=== PATIENT | male | born 1955 | race Two or more races ===

== ENCOUNTER → 2024-12-29 | Outpatient (CLI) | payer MEDICARE, MEDICAID, SELFPAY ==
[2024-12-29 08:37] LABS: Quantiferon-TB* See Sep Rpt
[2024-12-29 09:39] LABS: Basophils % (Auto) 1 % (0-2.5); Eosinophils # (Auto) 0.1 Thou/mm3 (0.0-0.5); Eosinophils % (Auto) 2 % (0-10); Hematocrit 44.8 % (41.0-53.0); Hemoglobin 15.3 g/dL (13.5-16.0); Immature Granulocytes % (Auto) 0 % (0-0); Immature Granulocytes Auto 0.02 Thou/mm3 (0.00-0.00); Lymphocytes # (Auto) 2.4 Thou/mm3 (1.0-4.8); Lymphocytes % (Auto) 44 % (10-50); Mean Corpuscular HGB Conc 34.2 g/dl (31.0-37.0); Mean Corpuscular Hemoglobin 31.7 pg (25.0-35.0); Mean Corpuscular Volume 93 fL (80-100); Monocytes # (Auto) 0.4 Thou/mm3 (0.0-0.8); Monocytes % (Auto) 7 % (0-12); Neutrophils # (Auto) 2.5 Thou/mm3 (1.8-7.7); Neutrophils % (Auto) 46 % (37-80); Nucleated Red Blood Cell % 0 /100 WBC (0); Platelet Count 286 Thou/mm3 (140-440); RDW Standard Deviation 44.2 fL (35.1-43.9); Red Blood Count 4.82 Miln/mm3 (4.50-5.90); White Blood Count 5.5 Thou/mm3 (3.8-10.6)
[2024-12-29 09:54] LABS: Alanine Aminotransferase 30 U/L (10-49); Albumin, Serum 4.6 gm/dL (3.4-4.8); Albumin/Globulin Ratio 1.5 (1.2-2.2); Alkaline Phosphatase 101 U/L (46-116); Anion Gap 6 (7-16); Aspartate Amino Transferase 27 U/L (0-34); BUN/Creatinine Ratio 19 Ratio (12-20); Bilirubin,Total 0.3 mg/dL (0.3-1.2); Blood Urea Nitrogen 17 mg/dL (9-23); Calcium 9.6 mg/dL (8.3-10.6); Calcium (Corrected) 9.6 mg/dL (8.5-10.1); Carbon Dioxide 26.3 mMol/L (20.0-31.0); Chloride 108 mMol/L (98-107); Creatinine (Component) 0.9 mg/dL (0.6-1.3); Globulin 3.1 gm/dL (2.3-3.5); Glucose 108 mg/dL (74-106); Osmolality,Calculated 281 (275-295); Potassium 4.3 mMol/L (3.4-5.1); Sodium 140 mMol/L (136-145); Total Protein 7.7 gm/dL (5.7-8.2); eGFR > 60 See Note
[2024-12-29 10:20] LABS: Syphilis Nonreactive (Nonreactive)
[2024-12-31 17:52] LABS: HIV-1 RNA, QN PCR 23 copies/mL
[2024-12-31 22:04] LABS: CD19 Percentage 9 % (6-29); CD19, Absolute 197 cells/uL (110-660); CD3 Percentage 59 % (57-85); CD3, Absolute 1390 cells/uL (840-3060); CD3-CD16+CD56+ % 32 % (4-25); CD3-CD16+CD56+ (Abs) 742 cells/uL (70-760); CD4 Percentage 30 % (30-61); CD4, Absolute 715 cells/uL (490-1740); CD4/CD8 Ratio 0.97 (0.86-5.00); CD8 Percentage 31 % (12-42); CD8, Absolute 740 cells/uL (180-1170)
[2025-01-01 06:32] LABS: HIV-1 RNA, QN PCR Log 1.36; Lymphocytes, Absolute 2345 cells/uL (850-3900)
== END | disposition home or self-care (01) ==
LOC: COPL 08:05
PROVIDERS: PCP Family Medicine; Referring Provider Internal Medicine Infectious Disease; Visit Provider Internal Medicine Infectious Disease
DX: B20 Human immunodeficiency virus [HIV] disease (principal)
CPT/HCPCS: 36415; 80053; 85025; 86355; 86357; 86359; 86360; 86480; 86780; 87536

== ENCOUNTER → 2025-01-01 | Outpatient (CLI) | payer MEDICARE, SELFPAY ==
[2025-01-01 08:42] LABS: Basophils % (Auto) 1 % (0-2.5); Eosinophils # (Auto) 0.1 Thou/mm3 (0.0-0.5); Eosinophils % (Auto) 1 % (0-10); Hematocrit 44.7 % (41.0-53.0); Hemoglobin 15.5 g/dL (13.5-16.0); Immature Granulocytes % (Auto) 0 % (0-0); Immature Granulocytes Auto 0.01 Thou/mm3 (0.00-0.00); Lymphocytes % (Auto) 48 % (10-50); Mean Corpuscular HGB Conc 34.7 g/dl (31.0-37.0); Mean Corpuscular Hemoglobin 31.8 pg (25.0-35.0); Mean Corpuscular Volume 92 fL (80-100); Monocytes # (Auto) 0.5 Thou/mm3 (0.0-0.8); Monocytes % (Auto) 7 % (0-12); Neutrophils # (Auto) 2.7 Thou/mm3 (1.8-7.7); Neutrophils % (Auto) 43 % (37-80); Nucleated Red Blood Cell % 0 /100 WBC (0); Platelet Count 287 Thou/mm3 (140-440); RDW Standard Deviation 43.4 fL (35.1-43.9); Red Blood Count 4.88 Miln/mm3 (4.50-5.90); White Blood Count 6.3 Thou/mm3 (3.8-10.6)
[2025-01-01 08:56] LABS: Glucose Estimated Average 114 mg/dL (80-131); Hemoglobin A1C 5.6 % Hgb (4.8-6.0)
[2025-01-01 08:57] LABS: Alanine Aminotransferase 35 U/L (10-49); Albumin, Serum 4.9 gm/dL (3.4-4.8); Albumin/Globulin Ratio 1.5 (1.2-2.2); Alkaline Phosphatase 102 U/L (46-116); Anion Gap 9 (7-16); Aspartate Amino Transferase 32 U/L (0-34); BUN/Creatinine Ratio 16 Ratio (12-20); Bilirubin,Total 0.4 mg/dL (0.3-1.2); Blood Urea Nitrogen 16 mg/dL (9-23); Calcium 10.2 mg/dL (8.3-10.6); Calcium (Corrected) 10.2 mg/dL (8.5-10.1); Cardiac Risk Estimate 4.9 RATIO (4.0-6.7); Chloride 107 mMol/L (98-107); Cholesterol 205 mg/dL (132-200); Globulin 3.2 gm/dL (2.3-3.5); Glucose 109 mg/dL (74-106); HDL Cholesterol 42 mg/dL (40-60); LDL Cholesterol,Calculated 123 mg/dL (0-130); Osmolality,Calculated 287 (275-295); Potassium 4.3 mMol/L (3.4-5.1); Sodium 143 mMol/L (136-145); Total Protein 8.1 gm/dL (5.7-8.2); Triglycerides 198 mg/dL (30-150); eGFR > 60 See Note
== END | disposition home or self-care (01) ==
LOC: COPL 07:27
PROVIDERS: PCP Student in an Organized Health Care Education/Training Program; Referring Provider Student in an Organized Health Care Education/Training Program; Visit Provider Student in an Organized Health Care Education/Training Program
DX: J30.9 Allergic rhinitis, unspecified (principal); R03.0 Elevated blood-pressure reading, without diagnosis of hypertension
CPT/HCPCS: 36415; 80053; 80061; 83036; 85025

== ENCOUNTER → 2025-04-05 | Outpatient (CLI) | payer MEDICARE, SELFPAY ==
[2025-04-08 17:52] LABS: PSA, Free 0.57 ng/mL; PSA, Total 6.6 ng/mL (< OR = 4.0)
[2025-04-09 06:58] LABS: PSA, % Free 9 % (calc) (>25)
== END | disposition home or self-care (01) ==
LOC: COPL 16:31
PROVIDERS: PCP Student in an Organized Health Care Education/Training Program; Referring Provider Student in an Organized Health Care Education/Training Program; Visit Provider Student in an Organized Health Care Education/Training Program
DX: Z12.5 Encounter for screening for malignant neoplasm of prostate (principal)
CPT/HCPCS: 36415; 84153; 84154

== ENCOUNTER → 2025-06-17 | Outpatient (CLI) | payer MEDICARE, MEDICAID, SELFPAY ==
[2025-06-17 07:19] LABS: Quantiferon-TB* See Sep Rpt
[2025-06-17 08:17] LABS: Basophils # (Auto) 0.0 Thou/mm3 (0.0-0.2); Basophils % (Auto) 1 % (0-2.5); Eosinophils # (Auto) 0.1 Thou/mm3 (0.0-0.5); Eosinophils % (Auto) 1 % (0-10); Hematocrit 42.6 % (41.0-53.0); Hemoglobin 14.4 g/dL (13.5-16.0); Immature Granulocytes Auto 0.04 Thou/mm3 (0.00-0.00); Lymphocytes # (Auto) 2.3 Thou/mm3 (1.0-4.8); Lymphocytes % (Auto) 36 % (10-50); Mean Corpuscular HGB Conc 33.8 g/dl (31.0-37.0); Mean Corpuscular Hemoglobin 32.1 pg (25.0-35.0); Mean Corpuscular Volume 95 fL (80-100); Monocytes # (Auto) 0.4 Thou/mm3 (0.0-0.8); Monocytes % (Auto) 6 % (0-12); Neutrophils # (Auto) 3.5 Thou/mm3 (1.8-7.7); Neutrophils % (Auto) 56 % (37-80); Nucleated Red Blood Cell # 0.00 Thou/mm3 (0.00-0.00); Nucleated Red Blood Cell % 0 /100 WBC (0); Platelet Count 400 Thou/mm3 (140-440); RDW Standard Deviation 45.2 fL (35.1-43.9); Red Blood Count 4.48 Miln/mm3 (4.50-5.90); White Blood Count 6.2 Thou/mm3 (3.8-10.6)
[2025-06-17 08:25] LABS: Alanine Aminotransferase 31 U/L (10-49); Albumin, Serum 4.3 gm/dL (3.4-4.8); Albumin/Globulin Ratio 1.3 (1.2-2.2); Alkaline Phosphatase 110 U/L (46-116); Anion Gap 9 (7-16); Aspartate Amino Transferase 33 U/L (0-34); BUN/Creatinine Ratio 13 Ratio (12-20); Bilirubin,Total 0.2 mg/dL (0.3-1.2); Blood Urea Nitrogen 16 mg/dL (9-23); Calcium 9.7 mg/dL (8.3-10.6); Calcium (Corrected) 9.7 mg/dL (8.5-10.1); Carbon Dioxide 26.0 mMol/L (20.0-31.0); Chloride 106 mMol/L (98-107); Creatinine (Component) 1.2 mg/dL (0.6-1.3); Globulin 3.3 gm/dL (2.3-3.5); Glucose 109 mg/dL (74-106); Osmolality,Calculated 283 (275-295); Potassium 4.2 mMol/L (3.4-5.1); Sodium 141 mMol/L (136-145); Total Protein 7.6 gm/dL (5.7-8.2); eGFR > 60 See Note
[2025-06-17 08:46] LABS: Syphilis Nonreactive (Nonreactive)
[2025-06-19 19:51] LABS: CD19 Percentage 9 % (6-29); CD19, Absolute 200 cells/uL (110-660); CD3 Percentage 61 % (57-85); CD3, Absolute 1324 cells/uL (840-3060); CD3-CD16+CD56+ % 30 % (4-25); CD3-CD16+CD56+ (Abs) 674 cells/uL (70-760); CD4 Percentage 32 % (30-61); CD4, Absolute 700 cells/uL (490-1740); CD4/CD8 Ratio 1.08 (0.86-5.00); CD8 Percentage 30 % (12-42); CD8, Absolute 647 cells/uL (180-1170)
[2025-06-21 07:04] LABS: Lymphocytes, Absolute 2185 cells/uL (850-3900)
[2025-07-05 08:55] LABS: HIV Genotype* DETECTED; HIV-1 RNA, QN PCR <20 DETECTED copies/mL; HIV-1 RNA, QN PCR Log <1.30 DETECTED
== END | disposition home or self-care (01) ==
LOC: COPL 06:58
PROVIDERS: PCP Family Medicine
DX: Z21 Asymptomatic human immunodeficiency virus [HIV] infection status (principal)
CPT/HCPCS: 36415; 80053; 85025; 86355; 86357; 86359; 86360; 86480; 86780; 87536; 87901

== ENCOUNTER 2025-06-20 11:15 | Emergency (ER) | payer MEDICARE, MEDICAID, SELFPAY ==
[2025-06-20 11:16] VITALS: BMI 27.1
[2025-06-20 11:43] VITALS: BP 126/71; PULSE 124; RESP 20; TEMP 38.8; O2SAT 95
--- NOTE | 2025-06-20 12:32 | PD.EDURI ---
Upper Respiratory Inf. RME/HPI General Chief Complaint: Flu Like Symptoms Stated Complaint: FEVER/BODY ACHE/BONE PAIN FOR 3 DAYS Time Seen by Provider: 06/20/25 12:28 Source: patient Arrival date/time: 06/20/25 11:15 Mode of arrival: ambulatory Limitations: no limitations RME / HPI RME / HPI Narrative: Patient is a 70-year-old male with medical history notable for HIV, compliant with his medications that in the emerged part concerns for body aches and generally feeling unwell. Also concerned that he is urinating more than normal. Patient recently returned from [place] approximately 2 weeks ago. Patient is HIV positive, is compliant with his medications. Related Data Home Medications ?Medication ?Instructions ?Recorded ?Confirmed efavirenz 600 mg-emtricitabine 200 1 tab PO HS 10/16/21 12/11/21 mg-tenofovir disoprox 300 mg tablet Previous Rx's ?Medication ?Instructions ?Recorded levofloxacin 500 mg tablet 500 mg PO QDAY #14 tabs 06/26/25 ondansetron 4 mg disintegrating 4 mg PO Q6H PRN nausea and 06/26/25 tablet vomiting #20 tabs Allergies Allergy/AdvReac Type Severity Reaction Status Date / Time No Known Allergies Allergy Verified 06/20/25 11:20 ED Exam General Limitations: Present no limitations Head Head exam: Present atraumatic and normocephalic Eye Eye exam: Present normal appearance, PERRL and EOMI ENT ENT exam: Present normal exam, normal oropharynx and mucous membranes moist Neck Neck exam: Present normal inspection, full ROM and trachea midline; Absent tenderness Chest Chest inspection: Present normal inspection and symmetric chest wall rise Respiratory Respiratory exam: Present normal lung sounds bilaterally; Absent respiratory distress, wheezes or stridor Cardiovascular Cardiovascular exam: Present normal rhythm and tachycardia Abdominal Exam Abdominal exam: Present soft; Absent distention, tenderness, guarding, rebound or rigidity Extremities Exam Extremities exam: Present normal inspection and full ROM Back Exam Back exam: Present normal inspection Neurological Exam Neurological exam: Present alert, oriented X3, CN II-XII intact and normal gait; Absent motor sensory deficit Psychiatric Psychiatric exam: Present normal affect and normal mood Course Quality Measures none Orders Category Date Time Status Bedside COVID-19 Antigen Test NOW Care 06/20/25 12:29 Completed Bedside Influenza A&B Antigen Test NOW Care 06/20/25 12:29 Completed CBC Stat Lab 06/20/25 12:55 Completed CMP [Comprehensive Metabolic Panel] Stat Lab 06/20/25 12:55 Completed UA, C/S IF [Urinalysis, C/S if Indicated] Stat Lab 06/20/25 12:40 Completed Urine Culture Stat Lab 06/20/25 12:40 Completed Ketorolac Inj [Toradol Inj] Med 06/20/25 12:30 Discontinued 15 mg IM X1 ONE Vital Signs Vital signs: Vital Signs Temperature 101.8 F H 06/20/25 11:43 Pulse Rate 124 H 06/20/25 11:43 Respiratory Rate 20 06/20/25 11:43 Blood Pressure 126/71 06/20/25 11:43 Pulse Oximetry (%) 95 06/20/25 11:43 Oxygen Delivery Method Room Air 06/20/25 11:43 Upper Respiratory Infection MDM Narrative MDM Narrative:: Pateint p/w fever and feeling unwell. Ordered swabs and labs. Patient eloped from the emergency department prior to reassessment. CALLED FROM [employer] AND NO ANSWER. PT NOT FOUND INSI Recorded: 06/20/25 14:31 CALLED FROM [employer] AND NO ANSWER Recorded: 06/20/25 14:21 called from [employer] and no answer Recorded: 06/20/25 14:04 Patient data External records reviewed:: [facility] previous records Clinical information provided by:: patient Social determinants that could affect healthcare access:: none Patient has the following chronic illnesses:: see above How is presenting disease/condition affected by chronic disease/condition?: exacerbated by Evaluation data The following diagnostics were reviewed and interpreted by me:: lab results Lab and/or radiology exams considered but not ordered:: nonen Interpretation Summary: see above Medications / Prescriptions Medications or Prescriptions considered but not ordered:: none Medication administrations:: Medication Administration History Discontinued Medications Ketorolac Tromethamine (Ketorolac Inj 60 Mg/2 Ml Vial) 15 mg IM X1 ONE Stop: 06/20/25 12:31 Last Admin: 06/20/25 13:25 Dose: 15 mg Documented By: see above Consultations Consultation(s) initiated? (list below): No Diagnosis Upper Respiratory Differential Diagnosis: upper respiratory infection, viral infection and other (pneumonia, strep) Most likely diagnosis given after review of the tests above:: fever Admission Indicated Admission indicated?: not indicated Admission Request Was there a request for admission?: No Disposition Plan Disposition Plan: other (specify) (eloped) Discharge Plan Plan Patient Disposition: Elopement Prescriptions/Referrals Prescriptions/Med Rec: No Action [id number] 600-200-300 mg Tablet 1 tab PO HS levofloxacin 500 mg tablet 500 mg PO QDAY Qty: 14 0RF ondansetron 4 mg tablet,disintegrating 4 mg PO Q6H PRN (Reason: nausea and vomiting) Qty: 20 0RF Problem List Clinical Impression: Fever in adult Patient/Caregiver Discharge Instructions Education Materials: ED Viral Syndrome (Adult) Additional Instructions: Por favor hacer madeline con adler medico de cabecera dentro de 1-2 jaquez. Regresar inmediatamente si tiene nuevos sintomas o sintomas de preocupacion. Print Language: Danish Stand Alone Forms: Radha Award Info., Patient Portal Info Letter
[2025-06-20 13:01] LABS: Collection Type, Urine Clean Catch
[2025-06-20 13:12] LABS: Basophils # (Auto) 0.1 Thou/mm3 (0.0-0.2); Basophils % (Auto) 0 % (0-2.5); Eosinophils # (Auto) 0.0 Thou/mm3 (0.0-0.5); Eosinophils % (Auto) 0 % (0-10); Hematocrit 43.2 % (41.0-53.0); Hemoglobin 14.8 g/dL (13.5-16.0); Immature Granulocytes Auto 0.07 Thou/mm3 (0.00-0.00); Lymphocytes # (Auto) 1.7 Thou/mm3 (1.0-4.8); Lymphocytes % (Auto) 8 % (10-50); Mean Corpuscular HGB Conc 34.3 g/dl (31.0-37.0); Mean Corpuscular Hemoglobin 32.3 pg (25.0-35.0); Mean Corpuscular Volume 94 fL (80-100); Monocytes # (Auto) 1.1 Thou/mm3 (0.0-0.8); Monocytes % (Auto) 5 % (0-12); Neutrophils # (Auto) 17.6 Thou/mm3 (1.8-7.7); Neutrophils % (Auto) 86 % (37-80); Nucleated Red Blood Cell # 0.00 Thou/mm3 (0.00-0.00); Nucleated Red Blood Cell % 0 /100 WBC (0); Platelet Count 349 Thou/mm3 (140-440); RDW Standard Deviation 44.8 fL (35.1-43.9); Red Blood Count 4.58 Miln/mm3 (4.50-5.90); White Blood Count 20.6 Thou/mm3 (3.8-10.6)
[2025-06-20 13:18] LABS: Bilirubin,Urine Negative (Negative); Blood,Urine Negative (Negative); Clarity,Urine Clear (Clear/Hazy); Color,Urine Lt-Yellow (Lt Yel-Yel); Glucose, Urine Negative (Negative); Ketones,Urine Negative (Negative); Leukocyte Esterase,Urine Positive (Negative); Nitrite,Urine Negative (Negative); PH,Urine 6.5 (5.0-7.0); Protein,Urine Trace (Neg - Trace); RBC,Urine 2 /hpf (0-3); Specific Gravity,Urine 1.014 (1.001-1.035); Squamous Epithelial Cell,Urine < 1 /hpf (0-5); Urobilinogen,Urine Negative mg/dL (0.0-1.0); WBC,Urine 17 /hpf (0-5)
[2025-06-20 13:21] LABS: Culture Indicated,Urine Yes
[2025-06-20] MEDS: KETOROLAC INJ 60 MG/2 ML VIAL 15 MG IM (13:25)
[2025-06-20 13:29] LABS: Alanine Aminotransferase 26 U/L (10-49); Albumin, Serum 4.6 gm/dL (3.4-4.8); Albumin/Globulin Ratio 1.4 (1.2-2.2); Alkaline Phosphatase 115 U/L (46-116); Anion Gap 11 (7-16); Aspartate Amino Transferase 29 U/L (0-34); BUN/Creatinine Ratio 12 Ratio (12-20); Bilirubin,Total 0.3 mg/dL (0.3-1.2); Blood Urea Nitrogen 12 mg/dL (9-23); Calcium 10.1 mg/dL (8.3-10.6); Calcium (Corrected) 10.1 mg/dL (8.5-10.1); Carbon Dioxide 24.2 mMol/L (20.0-31.0); Chloride 102 mMol/L (98-107); Creatinine (Component) 1.0 mg/dL (0.6-1.3); Estimated Creatinine Clearance 66.5 mL/min (>60); Globulin 3.4 gm/dL (2.3-3.5); Glucose 114 mg/dL (74-106); Osmolality,Calculated 274 (275-295); Potassium 4.1 mMol/L (3.4-5.1); Sodium 137 mMol/L (136-145); Total Protein 8.0 gm/dL (5.7-8.2); eGFR > 60 See Note
[2025-06-20 13:55] VITALS: TEMP 37.6
--- NOTE | 2025-06-20 14:04 | PC.NURSE ---
called from lobby and no answer
--- NOTE | 2025-06-20 14:21 | PC.NURSE ---
CALLED FROM LOBBY AND NO ANSWER
--- NOTE | 2025-06-20 14:31 | PC.NURSE ---
CALLED FROM [facility] AND NO ANSWER. PT NOT FOUND INSIDE THE E.D. OR OUTSIDE
== END 2025-06-20 14:40 | disposition left against medical advice (07) ==
LOC: SERX 14:55
PROVIDERS: Emergency Provider Emergency Medicine
DX: R50.9 Fever, unspecified (principal); Z21 Asymptomatic human immunodeficiency virus [HIV] infection status
CPT/HCPCS: 36415; 80053; 81001; 85025; 87077; 87086; 87186; 87400; 87811; 96372; 99282; J1885

== ENCOUNTER 2025-06-25 22:06 | Emergency (ER) | payer MEDICARE, MEDICAID, SELFPAY ==
[2025-06-25 22:07] VITALS: BMI 25.0
[2025-06-25 22:54] VITALS: BP 123/75; PULSE 106; RESP 18; TEMP 37.7; O2SAT 98
--- NOTE | 2025-06-25 23:24 | EDRME_ITS ---
Rapid Medical Screening Exam [facility] Arrival date/time: 06/25/25 22:06 70M with history of HIV presents to ED with 1 week of fevers/chills, unable to keep food down, and dysuria. Patient was recently here for this, but was discharged with no meds. Chief Complaint: General Adult/Misc Complain Time Seen by Provider: 06/25/25 23:45 Vital signs: Vital Signs Temperature 99.9 F 06/25/25 22:54 Pulse Rate 106 H 06/25/25 22:54 Respiratory Rate 18 06/25/25 22:54 Blood Pressure 123/75 06/25/25 22:54 Pulse Oximetry (%) 98 06/25/25 22:54 Oxygen Delivery Method Room Air 06/25/25 22:54
--- NOTE | 2025-06-25 23:52 | EDNOTE_ITS ---
ED General RME/HPI General Chief complaint: General Adult/Misc Complain Stated complaint: BONE PAIN WITH FEVER Time Seen by Provider: 06/25/25 23:45 Arrival date/time: 06/25/25 22:06 RME / HPI RME / HPI narrative: 06/25/25 22:06 70M with history of HIV presents to ED with 1 week of fevers/chills, unable to keep food down, and dysuria. Patient was recently here for this, but was discharged with no meds. DR. CYR MAIN ED EVALUATION: 70 y/o male with Hx of HIV presents to ED c/o fever, chills, increased urinary output, and body aches x 1 week. Denies headache. He was seen here approximately 5 days ago for similar symptoms testing negative for COVID/Flu. Patient is compliant with his HIV medication as he states that he only sees his specialist twice a year. No other concerns or complaints expressed at this time. Related Data Home Medications ?Medication ?Instructions ?Recorded ?Confirmed efavirenz 600 mg-emtricitabine 200 1 tab PO HS 1 12/11/21 mg-tenofovir disoprox 300 mg tablet Previous Rx's ?Medication ?Instructions ?Recorded levofloxacin 500 mg tablet 500 mg PO QDAY #14 tabs ondansetron 4 mg disintegrating 4 mg PO Q6H PRN nausea and 06/26/25 tablet vomiting #20 tabs Allergies Allergy/AdvReac Type Severity Reaction Status Date / Time No Known Allergies Allergy Verified 06/20/25 11:20 Review of Systems Review of Systems Systems Reviewed: All systems reviewed, normal except as documented Past Medical History Past Medical History MUSCULOSKELETAL: Positive Musculoskeletal Disorders and Arthritis OTHER HISTORY: Positive Human Immunodeficiency Virus (HIV) Surgical History SURGICAL: Positive Joint Replacement (YEISON HIPS) ED Exam Narrative Physical exam: Generally patient is alert no obvious distress, heart regular rate and rhythm, lungs clear to auscultation equal bilaterally, abdomen soft bowel sounds present nondistended mild suprapubic abdominal tenderness without rebound, musculoskeletal exam showed no costovertebral angle tenderness, skin is warm pale and dry. Neurologic exam Afsaneh Coma Scale of 15, neck shows no nuchal rigidity Course Course Course Narrative: CXR was ordered for determining the etiology of shortness of breath. Quality Measures none Orders Category Date Time Status Bedside COVID-19 Antigen Test NOW Care 06/25/25 22:30 Active Bedside Influenza A&B Antigen Test NOW Care 06/25/25 22:30 Completed XR chest 1V portable Stat Exams 06/25/25 23:56 Taken Blood Culture (Lab) Stat Lab 06/25/25 23:47 Received CBC Stat Lab 06/25/25 23:42 Completed CMP [Comprehensive Metabolic Panel] Stat Lab 06/25/25 23:42 Completed Lactate (Lactic Acid) Stat Lab 06/25/25 23:42 Completed Lipase Stat Lab 06/25/25 23:42 Completed Procalcitonin Stat Lab 06/25/25 23:42 Completed UA [Urinalysis] Stat Lab 06/25/25 00:06 Completed Urine Culture Stat Lab 06/26/25 00:36 Ordered Ketorolac Inj [Toradol Inj] Med 06/25/25 23:52 Discontinued 30 mg IVP X1 ONE Ondansetron Inj [Zofran Inj] Med 06/26/25 00:15 Discontinued 4 mg .ROUTE .STK-MED ONE Ondansetron Inj [Zofran Inj] Med 06/26/25 00:11 Discontinued 4 mg IVP X1 ONE Sodium Chloride 0.9% 1000 ml [Ns] 1,000 ml Med 06/25/25 23:52 Discontinued IV 999 mls/hr cefTRIAXone/D5w 1gm IV premix [Rocephin/D5w 1gm IV Med 06/26/25 00:36 Active premix] 1 gm in 50 ml IV X1 Vital Signs Vital signs: Vital Signs Temperature 99.9 F 06/25/25 22:54 Pulse Rate 106 H 06/25/25 22:54 Respiratory Rate 18 06/25/25 22:54 Blood Pressure 123/75 06/25/25 22:54 Pulse Oximetry (%) 98 06/25/25 22:54 Oxygen Delivery Method Room Air 06/25/25 22:54 Critical Care Time Critical Care Time Critical Care Time: Yes Total Critical Care Time (min.): 35 Attestation: Excluding other billable procedures Discharge Plan Plan Patient Disposition: HOME (Self Care) Prescriptions/Referrals Prescriptions/Med Rec: New levofloxacin 500 mg tablet 500 mg PO QDAY Qty: 14 0RF ondansetron 4 mg tablet,disintegrating 4 mg PO Q6H PRN (Reason: nausea and vomiting) Qty: 20 0RF No Action [id number] 600-200-300 mg Tablet 1 tab PO HS Referrals: Kobe Rojas MD [Primary Care Provider] - In 1 week Problem List Clinical Impression: Acute UTI, Arthralgia, HIV disease, Immunocompromised Patient/Caregiver Discharge Instructions Education Materials: ED Arthralgia, ED Bladder Infection, Male (Adult) Additional Instructions: Take the antibiotic for the next 2 weeks as prescribed. Zofran for nausea. Follow-up with your doctor. Return to ER as needed or if condition worsens. Print Language: Tristanian Stand Alone Forms: Radha Award Info., Patient Portal Info Letter MDM Narrative [facility] hospital course: Scribe Attestation: IShivani, am scribing for and in the presence of Dr. Cyr. Provider Notation: Although this document has been carefully reviewed, there may still be some phonetic and other typographical errors. These errors are purely grammatical due to imperfections in the software program and should not be construed in any way to? compromise the substance of the patient's medical care during this visit. Differential diagnosis, meningitis, cellulitis, pneumonia, UTI, prostatitis, viral syndrome I interpreted all labs. 5 to 6 days ago on June 20 white count was 20,000. Today the white count is 8000. Patient has 17 whites and 1+ bacteria in the urine with symptoms of a urinary tract infection which include frequency. I believe the patient needs to be treated at this time. Patient will receive Rocephin 1 g IV after the urine was obtained and cultured. I will start the patient on Levaquin to be taken as prescribed. I will treat the patient for 14 days under the assumption that this may be a prostatitis as well. Patient has been afebrile and nontachycardic here in the emergency room. Procalcitonin is not elevated. Patient was hydrated with a liter normal saline given Toradol 30 mg IV and Zofran 4 mg IV. He will be discharged on Levaquin and Zofran to be taken as prescribed. Follow-up with his doctor. Return to ER as needed or if condition worsens. Blood cultures were obtained. Clinical Information Provided by patient Medical Records Reviewed [facility] Reviewed prior ED records from 06/20/25. Patient was seen for Fever in adult. Meds/Rx Considered, not Ordered None Labs/Rad/Tests considered, not Ordered None Chronic Illness/Social Conditions which may negatively complicate care or outcome(s)-explain: other (HIV) EKG EKG not done Lab Interpretation Labs: interpreted by me and see narrative above Imaging Imaging interpretation: interpreted by me and see narrative above Medication Administration(s) Medication Administration History Ceftriaxone Sodium/Dextrose (Rocephin/D5w 1gm Iv Premix) 1 gm in 50 mls @ 100 mls/hr IV X1 ONE Stop: 06/26/25 01:05 Discontinued Medications Sodium Chloride (Ns) 1,000 mls @ 999 mls/hr IV .Q1H1M ONE Stop: 06/26/25 00:52 Last Admin: 06/26/25 00:06 Dose: 999 mls/hr Documented By: MICHELE Ketorolac Tromethamine (Ketorolac Inj 30 Mg/Ml Vial) 30 mg IVP X1 ONE Stop: 06/25/25 23:53 Last Admin: 06/26/25 00:07 Dose: 30 mg Documented By: MICHELE Ondansetron HCl (Ondansetron Inj 2 Mg/Ml Inj 2 Ml) 4 mg IVP X1 ONE; Protocol Stop: 06/26/25 00:12 Last Admin: 06/26/25 00:16 Dose: 4 mg Documented By: MICHELE Ondansetron HCl (Ondansetron Inj 2 Mg/Ml Inj 2 Ml) Confirm Administered Dose 4 mg .ROUTE .STK-MED ONE Stop: 06/26/25 00:16 Last Admin: 06/26/25 00:34 Dose: Not Given Documented By: DT Non-Admin Reason: duplicate See above if any. Diagnosis Differential diagnosis: Viral Illness, UTI, Pyelnophritis, Cystitis Dispositon Disposition: Discharge Home
[2025-06-25 23:53] LABS: Lactate (Lactic Acid) 1.1 mMol/L (0.4-2.0)
--- NOTE | 2025-06-25 23:56 | XR_ITS ---
Examination: AP chest single view Technique one AP portable upright chest single view. Gated and time: June 25, 2025, 11:59 PM, comparison December 05, 2019. Indications: Chest pain shortness of breath today. Findings: Normal heart size. Lungs are clear. Prominent osteopenia with significant osteoarthritis glenohumeral joints. Impression: No active disease.
[2025-06-26 00:05] LABS: Basophils # (Auto) 0.1 Thou/mm3 (0.0-0.2); Basophils % (Auto) 1 % (0-2.5); Eosinophils # (Auto) 0.0 Thou/mm3 (0.0-0.5); Eosinophils % (Auto) 0 % (0-10); Hematocrit 38.3 % (41.0-53.0); Hemoglobin 12.9 g/dL (13.5-16.0); Immature Granulocytes Auto 0.01 Thou/mm3 (0.00-0.00); Lymphocytes # (Auto) 1.6 Thou/mm3 (1.0-4.8); Lymphocytes % (Auto) 20 % (10-50); Mean Corpuscular HGB Conc 33.7 g/dl (31.0-37.0); Mean Corpuscular Hemoglobin 32.2 pg (25.0-35.0); Mean Corpuscular Volume 96 fL (80-100); Monocytes # (Auto) 1.0 Thou/mm3 (0.0-0.8); Monocytes % (Auto) 12 % (0-12); Neutrophils # (Auto) 5.5 Thou/mm3 (1.8-7.7); Neutrophils % (Auto) 67 % (37-80); Nucleated Red Blood Cell # 0.00 Thou/mm3 (0.00-0.00); Nucleated Red Blood Cell % 0 /100 WBC (0); Platelet Count 333 Thou/mm3 (140-440); RDW Standard Deviation 45.3 fL (35.1-43.9); Red Blood Count 4.01 Miln/mm3 (4.50-5.90); White Blood Count 8.1 Thou/mm3 (3.8-10.6)
[2025-06-26] MEDS: SODIUM CHLORIDE 0.9% 1000 ML 1,000 ML 999 ML IV (00:06)
[2025-06-26 00:07] VITALS: TEMP 37
[2025-06-26] MEDS: KETOROLAC INJ 30 MG/ML VIAL IVP (00:07)
[2025-06-26 00:16] LABS: Collection Type, Urine Voided
[2025-06-26] MEDS: ONDANSETRON INJ 2 MG/ML INJ 2 ML 4 MG IVP (00:16)
[2025-06-26 00:18] VITALS: BP 123/74; PULSE 90; RESP 14; TEMP 37; O2SAT 99
[2025-06-26 00:21] LABS: Alanine Aminotransferase 22 U/L (10-49); Albumin, Serum 4.3 gm/dL (3.4-4.8); Albumin/Globulin Ratio 1.3 (1.2-2.2); Alkaline Phosphatase 99 U/L (46-116); Anion Gap 10 (7-16); Aspartate Amino Transferase 32 U/L (0-34); BUN/Creatinine Ratio 14 Ratio (12-20); Bilirubin,Total 0.2 mg/dL (0.3-1.2); Blood Urea Nitrogen 14 mg/dL (9-23); Calcium 9.9 mg/dL (8.3-10.6); Calcium (Corrected) 9.9 mg/dL (8.5-10.1); Carbon Dioxide 22.7 mMol/L (20.0-31.0); Chloride 105 mMol/L (98-107); Creatinine (Component) 1.0 mg/dL (0.6-1.3); Estimated Creatinine Clearance 61.5 mL/min (>60); Globulin 3.4 gm/dL (2.3-3.5); Glucose 100 mg/dL (74-106); Lipase 32 U/L (12-53); Osmolality,Calculated 276 (275-295); Potassium 3.7 mMol/L (3.4-5.1); Procalcitonin 0.23 ng/ml (0.0-0.49); Sodium 138 mMol/L (136-145); Total Protein 7.7 gm/dL (5.7-8.2); eGFR > 60 See Note
[2025-06-26 00:23] LABS: Amorphous Crystals,Urine Present (Absent); Bacteria,Urine 1+; Bilirubin,Urine Negative (Negative); Blood,Urine Trace (Negative); Clarity,Urine Clear (Clear/Hazy); Color,Urine Yellow (Lt Yel-Yel); Glucose, Urine Negative (Negative); Ketones,Urine Negative (Negative); Leukocyte Esterase,Urine Positive (Negative); Nitrite,Urine Negative (Negative); PH,Urine 6.0 (5.0-7.0); Protein,Urine Trace (Neg - Trace); RBC,Urine 1 /hpf (0-3); Specific Gravity,Urine 1.017 (1.001-1.035); Squamous Epithelial Cell,Urine 1 /hpf (0-5); Urobilinogen,Urine Negative mg/dL (0.0-1.0); WBC,Urine 16 /hpf (0-5)
[2025-06-26] MEDS: cefTRIAXone/D5w 1gm IV premix 1 GM/50 ML BAG IV (00:57)
[2025-06-26 01:30] VITALS: BP 145/85; PULSE 85; RESP 14; TEMP 37; O2SAT 99
== END 2025-06-26 01:31 | disposition home or self-care (01) ==
PROVIDERS: Physician Assistant; Emergency Provider Emergency Medicine; PCP Family Medicine
DX: N39.0 Urinary tract infection, site not specified (principal); R82.71 Bacteriuria; R07.9 Chest pain, unspecified; R06.02 Shortness of breath; Z21 Asymptomatic human immunodeficiency virus [HIV] infection status
CPT/HCPCS: 36415; 71045; 80053; 81001; 83605; 83690; 84145; 85025; 87040; 87077; 87086; 87186; 87400; 87811; 96361; 96365; 96375; 99284; J0696; J1885; J2405; J7030

== ENCOUNTER → 2025-07-16 | Outpatient (CLI) | payer MEDICARE, MEDICAID, SELFPAY ==
[2025-07-16 08:46] LABS: Basophils # (Auto) 0.1 Thou/mm3 (0.0-0.2); Basophils % (Auto) 1 % (0-2.5); Eosinophils # (Auto) 0.1 Thou/mm3 (0.0-0.5); Eosinophils % (Auto) 1 % (0-10); Hematocrit 38.3 % (41.0-53.0); Hemoglobin 13.1 g/dL (13.5-16.0); Immature Granulocytes Auto 0.02 Thou/mm3 (0.00-0.00); Lymphocytes # (Auto) 2.3 Thou/mm3 (1.0-4.8); Lymphocytes % (Auto) 40 % (10-50); Mean Corpuscular HGB Conc 34.2 g/dl (31.0-37.0); Mean Corpuscular Hemoglobin 32.5 pg (25.0-35.0); Mean Corpuscular Volume 95 fL (80-100); Monocytes # (Auto) 0.4 Thou/mm3 (0.0-0.8); Monocytes % (Auto) 6 % (0-12); Neutrophils # (Auto) 2.9 Thou/mm3 (1.8-7.7); Neutrophils % (Auto) 51 % (37-80); Nucleated Red Blood Cell # 0.00 Thou/mm3 (0.00-0.00); Nucleated Red Blood Cell % 0 /100 WBC (0); Platelet Count 426 Thou/mm3 (140-440); RDW Standard Deviation 46.0 fL (35.1-43.9); Red Blood Count 4.03 Miln/mm3 (4.50-5.90); White Blood Count 5.7 Thou/mm3 (3.8-10.6)
[2025-07-16 09:10] LABS: Alanine Aminotransferase 30 U/L (10-49); Albumin, Serum 4.1 gm/dL (3.4-4.8); Albumin/Globulin Ratio 1.2 (1.2-2.2); Alkaline Phosphatase 110 U/L (46-116); Anion Gap 10 (7-16); Aspartate Amino Transferase 34 U/L (0-34); BUN/Creatinine Ratio 11 Ratio (12-20); Bilirubin,Total 0.2 mg/dL (0.3-1.2); Blood Urea Nitrogen 11 mg/dL (9-23); Calcium 9.6 mg/dL (8.3-10.6); Calcium (Corrected) 9.6 mg/dL (8.5-10.1); Carbon Dioxide 26.5 mMol/L (20.0-31.0); Chloride 106 mMol/L (98-107); Creatinine (Component) 1.0 mg/dL (0.6-1.3); Globulin 3.4 gm/dL (2.3-3.5); Glucose 106 mg/dL (74-106); Osmolality,Calculated 282 (275-295); Potassium 3.7 mMol/L (3.4-5.1); Sodium 142 mMol/L (136-145); Total Protein 7.5 gm/dL (5.7-8.2); eGFR > 60 See Note
== END | disposition home or self-care (01) ==
PROVIDERS: PCP Internal Medicine; Referring Provider Internal Medicine; Visit Provider Internal Medicine
DX: R11.0 Nausea (principal); B20 Human immunodeficiency virus [HIV] disease; K21.9 Gastro-esophageal reflux disease without esophagitis; R10.84 Generalized abdominal pain
CPT/HCPCS: 36415; 80053; 85025

== ENCOUNTER → 2025-07-21 | Outpatient (CLI) | payer MEDICARE, MEDICAID, SELFPAY ==
[2025-07-21 09:51] LABS: Urea Breath Test Positive (Negative)
== END | disposition home or self-care (01) ==
LOC: COPL 07:42
PROVIDERS: PCP Family Medicine; Referring Provider Internal Medicine; Visit Provider Internal Medicine
DX: R11.0 Nausea (principal); K21.9 Gastro-esophageal reflux disease without esophagitis; R10.84 Generalized abdominal pain; Z21 Asymptomatic human immunodeficiency virus [HIV] infection status
CPT/HCPCS: 83013; 83014

== ENCOUNTER → 2025-08-17 | Outpatient (CLI) | payer MEDICARE, MEDICAID, SELFPAY ==
--- NOTE | 2025-08-17 08:00 | XR_ITS ---
Examination: CT abdomen and pelvis without contrast. Coronal 3-D reconstructions. Sagittal 2-D reconstructions. Date and time of exam: August 17, 2025, 0803 hours, comparison August 09, 2019 INDICATIONS: Diagnosis esophageal reflux heartburn nausea 2 months CTDI: vol (mGy): 7.20 DLP: (mGycm): 415 Technique: Axial images of the abdomen have been obtained, 3 mm slice thickness Intravenous contrast material has not been administered. Low dose protocols were performed. One or more of the following dose reduction techniques were used; automated exposure control, adjustment of the mA and/or KV according to patient size, use of iterative reconstruction technique. 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
== END | disposition home or self-care (01) ==
LOC: CCTX 07:58
PROVIDERS: Referring Provider Internal Medicine; Visit Provider Internal Medicine
DX: N20.0 Calculus of kidney (principal)
CPT/HCPCS: 74176

== ENCOUNTER → 2025-10-01 | Outpatient (CLI) | payer MEDICARE, MEDICAID, SELFPAY ==
[2025-10-01 09:47] LABS: Urea Breath Test Positive (Negative)
== END | disposition home or self-care (01) ==
LOC: COPL 08:06
PROVIDERS: PCP Family Medicine; Referring Provider Student in an Organized Health Care Education/Training Program; Visit Provider Student in an Organized Health Care Education/Training Program
DX: Z01.89 Encounter for other specified special examinations (principal); B96.81 Helicobacter pylori [H. pylori] as the cause of diseases classified elsewhere
CPT/HCPCS: 83013; 83014